=== PATIENT | male | born 1990 | race Two or more races ===

== ENCOUNTER 2019-01-22 13:52 | Emergency (ER) | payer MEDICAID, OTHER ==
[~2019-01-22] VITALS: Ht 162.6 cm; Wt 113.4 kg
[2019-01-22 15:42] VITALS: BP 142/92
== END 2019-01-22 16:17 | disposition home or self-care (01) ==
LOC: ER 13:52
DX: K12.2 Cellulitis and abscess of mouth (principal); K05.10 Chronic gingivitis, plaque induced; F17.210 Nicotine dependence, cigarettes, uncomplicated; F12.10 Cannabis abuse, uncomplicated

== ENCOUNTER 2020-11-13 13:36 | Emergency (ER) | payer MEDICAID ==
[~2020-11-13] VITALS: Ht 162.6 cm; Wt 99.8 kg
[2020-11-13 14:07] VITALS: BP 145/92
== END 2020-11-13 16:06 | disposition home or self-care (01) ==
LOC: ER 13:36
DX: S46.912A Strain of unspecified muscle, fascia and tendon at shoulder and upper arm level, left arm, initial encounter (principal); S40.022A Contusion of left upper arm, initial encounter; F17.210 Nicotine dependence, cigarettes, uncomplicated; F12.10 Cannabis abuse, uncomplicated; V19.9XXA Pedal cyclist (driver) (passenger) injured in unspecified traffic accident, initial encounter; Y93.89 Activity, other specified; Y92.89 Other specified places as the place of occurrence of the external cause; Y99.8 Other external cause status
CPT/HCPCS: 73060; 93971